=== PATIENT | male | born 1985 | race Caucasian/White ===

== ENCOUNTER 2020-05-17 13:11 | Emergency (ER) | payer OTHER ==
[~2020-05-17] VITALS: Ht 188 cm; Wt 83.9 kg
[2020-05-17 13:57] LABS: BASOPHILS ABSOLUTE AUTO 0.04 K/mm3 (0.00-0.23); BASOPHILS PERCENT AUTO 0 % (0-2); EOSINOPHILS ABSOLUTE AUTO 0.08 K/mm3 (0.00-0.68); EOSINOPHILS PERCENT AUTO 1 % (0-6); Hematocrit 44.1 % (37.0-53.0); Hemoglobin 14.8 g/dL (13.5-17.5); IMMATURE GRAN ABSOLUTE AUTO 0.03 K/mm3 (0.00-0.10); IMMATURE GRAN PERCENT AUTO 0 % (0-1); LYMPHOCYTES ABSOLUTE AUTO 1.67 K/mm3 (0.84-5.20); LYMPHOCYTES PERCENT AUTO 16 % (21-46); MONOCYTES ABSOLUTE AUTO 0.96 K/mm3 (0.16-1.47); MONOCYTES PERCENT AUTO 9 % (4-13); Mean Corpuscular HGB 29.8 pg (26.0-34.0); Mean Corpuscular HGB Conc 33.6 g/dL (31.5-36.5); Mean Corpuscular Volume 89 fL (80-100); Mean Platelet Volume 9.9 fL (9.1-12.4); NEUTROPHILS PERCENT AUTO 74 % (41-73); Platelet Count 276 K/mm3 (150-400); RDW Coefficient Variation 12.4 % (11.7-14.2); RDW Standard Deviation 40.8 fL (35.1-46.3); Red Blood Cell Count 4.96 M/mm3 (4.30-5.90); White Blood Cell Count 10.78 K/mm3 (4.00-11.30)
[2020-05-17 14:13] LABS: Alanine Aminotransfer (ALT/SGP 33 U/L (12-78); Albumin, Blood 3.4 g/dL (3.4-5.0); Albumin/Globulin Ratio 0.8 (0.8-1.8); Alk Phos 76 U/L (50-136); Anion Gap 7 mmol/L (6-16); Aspartate Aminotrans (AST/SGOT 20 U/L (12-37); Bilirubin, Total 0.6 mg/dL (0.1-1.0); Blood Urea Nitrogen 17 mg/dL (8-24); Bun/Creatinine Ratio 13.7 (12.0-20.0); CO2, Blood 26 mmol/L (21-32); Calcium, Blood 9.1 mg/dL (8.5-10.1); Chloride, Blood 107 mmol/L (98-108); Creatinine, Blood 1.24 mg/dL (0.60-1.20); Glomerular Filtration Rate >60 (60-); Glucose, Blood 107 mg/dL (70-99); Potassium, Blood 4.1 mmol/L (3.5-5.5); Sodium, Blood 140 mmol/L (136-145); Total Protein, Blood 7.4 g/dL (6.4-8.2)
[2020-05-17 16:51] LABS: International Normalized Ratio 0.96; Prothrombin Time Results 10.3 Sec (9.7-11.5)
[2020-05-17 17:39] LABS: Source, Urine Catheter
[2020-05-17 17:55] LABS: Appearance, Urine Clear (Clear); Bilirubin, Urine Neg (Neg); Blood, Urine Neg (Neg); Color, Urine Yellow (P-Yellow); Glucose Qualitative, Urine Neg (Neg); Ketones, Urine Neg (Neg); Leukocyte Esterase, Urine Neg (Neg); Nitrite, Urine Neg (Neg); Protein, Urine Neg (Neg); Urobilinogen, Urine 2+ (Normal)
[2020-05-17] MEDS ORDERED: Vibramycin100 MG PO (19:05)
[2020-05-17] MEDS ORDERED: Roxicodone5 MG PO (19:05)
== END 2020-05-17 19:10 | disposition home or self-care (01) ==
LOC: ER 13:11
PROVIDERS: Physician Assistant
DX: L03.116 Cellulitis of left lower limb (principal); F17.210 Nicotine dependence, cigarettes, uncomplicated; Z88.0 Allergy status to penicillin
CPT/HCPCS: 71046; 73562-LT; 80053; 81003; 85025; 85610; 85730; 87086; 93005; 93010; 99285-25; J1885

== ENCOUNTER 2020-05-18 14:59 | Inpatient (IN) | payer OTHER ==
[~2020-05-18] VITALS: Ht 188 cm; Wt 81.7 kg
[~2020-05-18 14:59] MED LIST: Roxicodone5 MG PO; Vibramycin100 MG PO
[2020-05-18 16:02] LABS: BASOPHILS ABSOLUTE AUTO 0.02 K/mm3 (0.00-0.23); BASOPHILS PERCENT AUTO 0 % (0-2); EOSINOPHILS ABSOLUTE AUTO 0.05 K/mm3 (0.00-0.68); EOSINOPHILS PERCENT AUTO 0 % (0-6); Hematocrit 44.2 % (37.0-53.0); Hemoglobin 14.8 g/dL (13.5-17.5); IMMATURE GRAN ABSOLUTE AUTO 0.03 K/mm3 (0.00-0.10); IMMATURE GRAN PERCENT AUTO 0 % (0-1); LYMPHOCYTES ABSOLUTE AUTO 1.82 K/mm3 (0.84-5.20); LYMPHOCYTES PERCENT AUTO 16 % (21-46); MONOCYTES ABSOLUTE AUTO 0.79 K/mm3 (0.16-1.47); MONOCYTES PERCENT AUTO 7 % (4-13); Mean Corpuscular HGB Conc 33.5 g/dL (31.5-36.5); Mean Corpuscular Volume 90 fL (80-100); NEUTROPHILS ABSOLUTE AUTO 8.78 K/mm3 (1.96-9.15); NEUTROPHILS PERCENT AUTO 76 % (41-73); Platelet Count 250 K/mm3 (150-400); RDW Coefficient Variation 12.5 % (11.7-14.2); RDW Standard Deviation 41.1 fL (35.1-46.3); Red Blood Cell Count 4.94 M/mm3 (4.30-5.90); White Blood Cell Count 11.49 K/mm3 (4.00-11.30)
[2020-05-18 16:26] LABS: Alanine Aminotransfer (ALT/SGP 33 U/L (12-78); Albumin, Blood 3.3 g/dL (3.4-5.0); Albumin/Globulin Ratio 0.9 (0.8-1.8); Alk Phos 76 U/L (50-136); Anion Gap 7 mmol/L (6-16); Aspartate Aminotrans (AST/SGOT 23 U/L (12-37); Bilirubin, Total 0.7 mg/dL (0.1-1.0); Blood Urea Nitrogen 19 mg/dL (8-24); Bun/Creatinine Ratio 22.4 (12.0-20.0); CO2, Blood 26 mmol/L (21-32); CPK Creatine Kinase 193 U/L (39-308); Calcium, Blood 8.9 mg/dL (8.5-10.1); Chloride, Blood 108 mmol/L (98-108); Creatinine, Blood 0.85 mg/dL (0.60-1.20); Globulin, Blood 3.5 g/dL (2.2-4.0); Glomerular Filtration Rate >60 (60-); Glucose, Blood 99 mg/dL (70-99); Potassium, Blood 3.9 mmol/L (3.5-5.5); Sodium, Blood 141 mmol/L (136-145); Total Protein, Blood 6.8 g/dL (6.4-8.2)
[2020-05-18 19:32] LABS: BASOPHILS ABSOLUTE AUTO 0.04 K/mm3 (0.00-0.23); BASOPHILS PERCENT AUTO 0 % (0-2); EOSINOPHILS ABSOLUTE AUTO 0.12 K/mm3 (0.00-0.68); EOSINOPHILS PERCENT AUTO 1 % (0-6); Hematocrit 42.5 % (37.0-53.0); Hemoglobin 14.3 g/dL (13.5-17.5); IMMATURE GRAN ABSOLUTE AUTO 0.03 K/mm3 (0.00-0.10); IMMATURE GRAN PERCENT AUTO 0 % (0-1); LYMPHOCYTES ABSOLUTE AUTO 2.42 K/mm3 (0.84-5.20); LYMPHOCYTES PERCENT AUTO 23 % (21-46); MONOCYTES PERCENT AUTO 8 % (4-13); Mean Corpuscular HGB 30.4 pg (26.0-34.0); Mean Corpuscular HGB Conc 33.6 g/dL (31.5-36.5); Mean Corpuscular Volume 90 fL (80-100); Mean Platelet Volume 9.9 fL (9.1-12.4); NEUTROPHILS ABSOLUTE AUTO 7.18 K/mm3 (1.96-9.15); NEUTROPHILS PERCENT AUTO 68 % (41-73); Platelet Count 235 K/mm3 (150-400); RDW Coefficient Variation 12.5 % (11.7-14.2); RDW Standard Deviation 41.4 fL (35.1-46.3); Red Blood Cell Count 4.71 M/mm3 (4.30-5.90); White Blood Cell Count 10.59 K/mm3 (4.00-11.30)
--- NOTE | 2020-05-18 20:14 | NUR ---
35 YR OLD MALE ADMITTED TO FLOOR FROM THE ED WITH DX OF CELLULITIS OF LEFT THIGH. ED RN STATES PT HAS RECENT HX OF IV DRUG ABUSE AND POSSIBLE INJECTION IN LEFT THIGH - POSIBLE CAUSE OF THE CELLULITIS. ORIENTED TO CALL LIGHT AND ROOM. CALL LIGHT IN REACH. BANANA BAG INITIATED.
[2020-05-19 05:37] LABS: Anion Gap 3 mmol/L (6-16); Blood Urea Nitrogen 20 mg/dL (8-24); Bun/Creatinine Ratio 20.4 (12.0-20.0); CO2, Blood 30 mmol/L (21-32); Calcium, Blood 8.4 mg/dL (8.5-10.1); Chloride, Blood 105 mmol/L (98-108); Creatinine, Blood 0.98 mg/dL (0.60-1.20); Glomerular Filtration Rate >60 (60-); Glucose, Blood 99 mg/dL (70-99); Magnesium, Blood 2.2 mg/dL (1.6-2.4); Phosphorus, Blood 4.5 mg/dL (2.5-4.9); Potassium, Blood 4.4 mmol/L (3.5-5.5); Sodium, Blood 138 mmol/L (136-145)
--- NOTE | 2020-05-19 06:43 | NUR ---
PT ADMITTED TO FLOOR LAST EVENING FOR RIGHT THIGH CELLULITIS. IV BANANA BAG ADMINISTERED PER MD ORDERS. HAS BEEN RESTING QUIETLY AT INTERVALS WITH INTERRUPTIONS FOR REQUESTS FOR FOOD AND ANALGESICS - SEE MAR FOR DETAILS. CALL LIGHT IN REACH. RESTING QUIETLY AT THIS TIME.
--- NOTE | 2020-05-19 18:35 | NUR ---
SUMMARY- PT A/O X4, INDEPENDANT IN ROOM. CELLULITIS L THIGH HAS EXTENDED BEYOND LINE DRAWN IN ED. REDNESS AND HEAT PRESENT, HAS BECOME LESS RED OR HOT THIS AFTERNOON. PT TOLERATING FOOD AND FLUID. PAIN CONTROLLED WITH OXYCODONE AND TYLENOL. PT WENT OUTSIDE WITH WALKER X2 TODAY TO SMOKE. THIS PM HIS WHO IS REPORTEDLY A METH ADDICT, CAME TO VISIT WITH HIS CONCENT AND HASNT RETURNED FOR HIS 1800 ABX DESPITE RN REMINDER.
[2020-05-19 18:40] LABS: BASOPHILS ABSOLUTE AUTO 0.05 K/mm3 (0.00-0.23); BASOPHILS PERCENT AUTO 1 % (0-2); EOSINOPHILS ABSOLUTE AUTO 0.21 K/mm3 (0.00-0.68); EOSINOPHILS PERCENT AUTO 3 % (0-6); Hemoglobin 14.3 g/dL (13.5-17.5); IMMATURE GRAN ABSOLUTE AUTO 0.02 K/mm3 (0.00-0.10); IMMATURE GRAN PERCENT AUTO 0 % (0-1); LYMPHOCYTES ABSOLUTE AUTO 2.03 K/mm3 (0.84-5.20); LYMPHOCYTES PERCENT AUTO 25 % (21-46); MONOCYTES ABSOLUTE AUTO 0.85 K/mm3 (0.16-1.47); MONOCYTES PERCENT AUTO 11 % (4-13); Mean Corpuscular HGB 30.4 pg (26.0-34.0); Mean Corpuscular HGB Conc 33.3 g/dL (31.5-36.5); Mean Corpuscular Volume 91 fL (80-100); Mean Platelet Volume 10.4 fL (9.1-12.4); NEUTROPHILS ABSOLUTE AUTO 4.95 K/mm3 (1.96-9.15); NEUTROPHILS PERCENT AUTO 61 % (41-73); Platelet Count 258 K/mm3 (150-400); RDW Coefficient Variation 12.7 % (11.7-14.2); RDW Standard Deviation 42.8 fL (35.1-46.3); Red Blood Cell Count 4.71 M/mm3 (4.30-5.90); White Blood Cell Count 8.11 K/mm3 (4.00-11.30)
--- NOTE | 2020-05-19 19:16 | NUR ---
AWAKE, "" AT BEDSIDE. STATED THE SWELLING WAS GETTING WORSE OF LEFT THIGH. NOTED SOME SWELLING OUTSIDE OF THE DOTTED LINES OF YESTERDAY, BUT DISCOLORATION NOTED DECREAESED. ALERT AND ORIENTED. CALL LIGHT IN REACH
--- NOTE | 2020-05-20 05:31 | NUR ---
SHIFT SUMMARY HAS BEEN RESTING QUIETLY WITH FEW INTERRUPTIONS SINCE HS. REQUESTED AND RECEIVED ANALGESIC X 1 FOR LEFT THIGH PAIN. SWELLING DISCUSSED. IV ANTIBIOTICS INFUSING PER MD ORDERS. CALL LIGHT IN REACH
[2020-05-20 09:25] LABS: Anion Gap 4 mmol/L (6-16); Blood Urea Nitrogen 17 mg/dL (8-24); Bun/Creatinine Ratio 19.7 (12.0-20.0); CO2, Blood 26 mmol/L (21-32); Calcium, Blood 8.5 mg/dL (8.5-10.1); Chloride, Blood 108 mmol/L (98-108); Creatinine, Blood 0.86 mg/dL (0.60-1.20); Glomerular Filtration Rate >60 (60-); Glucose, Blood 106 mg/dL (70-99); Magnesium, Blood 1.8 mg/dL (1.6-2.4); Phosphorus, Blood 2.8 mg/dL (2.5-4.9); Potassium, Blood 4.5 mmol/L (3.5-5.5); Sodium, Blood 138 mmol/L (136-145)
--- NOTE | 2020-05-20 17:11 | NUR ---
SUMMARY- PT A/O X4, INDEPENDANT IN ROOM. TOLERATING FOOD AND FLUIDS NO NAUSEA. VSS, AFIBRILE. L THIGH REMAINS SLIGHT SWOLLEN, DISCOLORED RED, AND WARM TO TOUCH. 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 PT GOES OUTSIDE WITH WALKER TO SMOKE. PT SLEPT MOST OF THE DAY. PAIN IS CONTROLLED WITH OXYCODONE AND TYLENOL. IS STAYING IN THE ROOM FAMILY IS HOMELESS AND TRAVELING FROM [place]. PLAN FOR NPO AFTER 0400 AM 05/21 FOR I & D IN THE AFTERNOON.
[2020-05-20 18:01] LABS: Vancomycin, Trough 18.4 ug/mL (5.0-10.0)
--- NOTE | 2020-05-20 18:54 | NUR ---
PT UNAVAILABLE TO GIVE 1800 MEDS- OUTSIDE UNTIL 1649- NOC RN WILL F/U
--- NOTE | 2020-05-20 19:46 | NUR ---
AWAKE, AT BEDSIDE. INSTRUCTED OF NPO AFTER 0400 AM. VOICED AGREEMENT. IV ANTIBIOTIC STARTED (FROM DAY SHIFT PT WAS IN THE BATHROOM EARLIER). CALL LIGHT IN REACH
--- NOTE | 2020-05-21 04:15 | NUR ---
SHIFT SUMMARY HAS BEEN RESTING QUIETLY WITH FEW INTERRUPTIONS SINCE HS, IV ANTIBIOTICS INFUSING PER MD ORDERS - SEE MAR FOR DETAILS. RECEIVED ANALGESIC X 1 OF THIS WRITING. NPO SINCE 0400 FOR I AND D PROCEDURE SCHEDULED THIS AM. NO NOTED S/S ACUTE DISTRESS. CALL LIGHT IN REACH
--- NOTE | 2020-05-21 17:02 | NUR ---
PT AOX4 AND COOPERATIVE OF MOST CARE. PT HAD BEEN NPO TODAY SINCE 0400 PER NEWBORN PHOTOGRAPHER. PT VERBALIZED HE KNEW HE HAD TO STAY NPO UNTIL HIS IND WAS COMPLETED. PT HAD NOTHING TO EAT IN ROOM, BUT DID GO DOWN TO SMOKE WITH HIS . PT TOLD SURGICAL NURSE HE HAD TAKEN A COUPLE BITES OF A BURRITO SO HIS IND WAS RESCHEDULED FOR TOMORROW AND PT WILL AGIAN BE NPO STARTING AT MIDNIGHT.PT HAS BEEN INDEPENDENT AND TREATED FOR L LEG PAIN PER EMAR. WILL CONTINUE TO MONITOR.
--- NOTE | 2020-05-21 19:28 | NUR ---
AWAKE, IN ROOM. ALERT AND ORIENTED. INSTRUCTED OF NPO AT 0000, VOICED UNDERSTANDING AND AGREES TO COMPLY. CALL LIGHT IN REACH.
--- NOTE | 2020-05-22 03:47 | NUR ---
SHIFT SUMMARY HAS BEEN NPO SINCE 0000 FOR SURGICAL PROCEURE SCHEDULED LATER TODAY. HAS BEEN RESTING QUIETLY WITH FEW INTERRUPTIONS SINCE THEN. IV ANTIBIOTICS INFUSING PER MD ORDERS - SEE MAR FOR DETAILS. CALL LIGHT IN REACH
--- NOTE | 2020-05-22 06:41 | NUR ---
PT TRANSPORTED TO [facility]. AGREES WITH PLANNED SURGERY. PT SLEEPY, WAKES TO VOICE.
--- NOTE | 2020-05-22 07:35 | NUR ---
05/22/20 0735 Frank Livingston PATIENT ON SCHEDULED ANTIBIOTICS.
[2020-05-22 09:57] LABS: Creatinine, Blood 0.99 mg/dL (0.60-1.20); Vancomycin, Trough 12.5 ug/mL (5.0-10.0)
[2020-05-22] MEDS ORDERED: SULTRIDS PO (12:08)
--- NOTE | 2020-05-22 13:23 | NUR ---
PT LEFT AMA TOOK ALL PERSONAL BELONGINGS. PT WAS AWARE DISCHARGE PAPERWORK WAS BEING COMPLETED AND LEFT WITHOUT LETTING ANYONE KNOW HE WAS NOT COMMING BACK. 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 AID FOUND PT HAD THEN LEFT.
== END 2020-05-22 13:14 | disposition left against medical advice (07) | DRG 603 ==
LOC: ER 14:59 → MEDS 15:00 → ER 19:48 → MEDS 20:00
PROVIDERS: Emergency Medicine; Pharmacist; Surgery; ADMIT Internal Medicine
PROC: 0H9JXZZ Drainage of Left Upper Leg Skin, External Approach (ICD-10-PCS; principal; 2020-05-22 07:30)
DX: L03.116 Cellulitis of left lower limb (principal); F15.10 Other stimulant abuse, uncomplicated; Z59.0 Homelessness; Z20.828 Contact with and (suspected) exposure to other viral communicable diseases; L02.416 Cutaneous abscess of left lower limb
CPT/HCPCS: 36415; 73701; 76882; 80048; 80053; 80202; 82550; 82565; 83605; 83735; 84100; 85025; 85651; 86140; 87040; 87070; 87075; 87205; 96365; 96366; 96375; 99285-25; A9270; A9270-GY; J1100; J1200; J1885; J2250; J2270; J2405; J2543; J2704; J3010; J3370; J3411; J3475; J7040; J7042; J7050; J7120; Q9967; U0004

== ENCOUNTER 2020-05-22 20:58 | Emergency (ER) | payer OTHER ==
[~2020-05-22] VITALS: Ht 188 cm; Wt 72.6 kg
[~2020-05-22 20:58] MED LIST changes: +SULTRIDS PO
== END 2020-05-22 23:05 | disposition home or self-care (01) ==
LOC: ER 20:58
DX: Z48.01 Encounter for change or removal of surgical wound dressing (principal); F17.210 Nicotine dependence, cigarettes, uncomplicated; Z88.0 Allergy status to penicillin
CPT/HCPCS: 99282-25